=== PATIENT | female | born 1980 | race Two or more races ===

== ENCOUNTER 2017-09-14 12:57 | Emergency (ER) | payer OTHER | END 2017-09-14 14:14 | disposition home or self-care (01) | LOC: ED 12:57 | DX: M25.461 Effusion, right knee (principal); Z98.84 Bariatric surgery status; Z88.0 Allergy status to penicillin ==

== ENCOUNTER 2018-01-05 10:25 | Emergency (ER) | payer OTHER ==
[~2018-01-05] VITALS: Ht 167.6 cm; Wt 117.9 kg
[2018-01-05 10:33] VITALS: Ht 167.6 cm; Wt 117.9 kg
[2018-01-05 10:57] VITALS: BP 138/80
== END 2018-01-05 10:57 | disposition other institution (70) ==
LOC: ED 10:25
DX: Z02.89 Encounter for other administrative examinations (principal); Z88.0 Allergy status to penicillin; Z86.79 Personal history of other diseases of the circulatory system